=== PATIENT | female | born 1975 | race African-American/Black ===

== ENCOUNTER → 2016-09-17 | Outpatient (CLI) | payer OTHER ==
[~2016-09-17] MED LIST: ALBUTEROL MININEB NEB; ALBUTEROL17 GM INH; AMOXICILLIN PO; BACTRIM DS TABL1 TA1 PO; BENADRYL25 MG PO; BENZONATATE PO; FLONASE16 GM; IBUPROFEN PO; KETOPROFEN PO; METRONIDAZOLE PO; NAPROSYN375 MG PO; PRILOSEC20 M1 PO; PYRIDIUM PO; REGLAN10 MG PO; ROBITUSSIN A-C S5 ML PO; TESSALON200 MG PO; VICODIN PO; ZITHROMAX1 G/PKT PO
[2016-09-17 16:46] LABS: ARTERIAL BLD GAS O2 SATURATION 96.4 % (90.0-100.0); ARTERIAL BLOOD GAS HCO3 23.9 mmol/L; ARTERIAL BLOOD GAS MET HB 0.6 %sat (0.0-2.0); ARTERIAL BLOOD GAS PO2 93.2 mmHg (80.0-100); ARTERIAL BLOOD GAS pH 7.407 (7.350-7.450)
[2016-09-17 16:47] LABS: ARTERIAL BLOOD GAS ART SITE LEFT BRACHIAL; ARTERIAL DRAW? YES
== END | disposition home or self-care (01) ==
LOC: CLAB 16:11
PROVIDERS: Surgery
DX: R91.8 Other nonspecific abnormal finding of lung field (principal)
CPT/HCPCS: 36600; 82803